=== PATIENT | male | born 1965 | race Caucasian/White ===

== ENCOUNTER 2018-05-03 12:21 | Inpatient (IN) | payer BC ==
[~2018-05-03] VITALS: Ht 177.8 cm; Wt 101.5 kg
[2018-05-03 14:08] VITALS: BP 119/76
[2018-05-03] MEDS ORDERED: FURO20TA3 PO (14:43)
[2018-05-03] MEDS ORDERED: LACT10SO28 PO (14:43)
[2018-05-03] MEDS ORDERED: POTA10TA6 PO (14:43)
[2018-05-03] MEDS ORDERED: SPIR25TA5 PO (14:43)
[2018-05-03 14:46] VITALS: BP 119/76
[2018-05-03] MEDS ORDERED: ONDANSETRON 2MG/ML, 2ML IVPush PRN (15:30)
[2018-05-03 16:04] LABS: ALANINE AMINOTRANSFERASE 91 U/L (12-78); ALBUMIN 2.5 g/dL (3.4-5.0); ANION GAP 12 mmol/L (5-15); CALCIUM 7.8 mg/dL (8.5-10.1); CHLORIDE 98 mmol/L (98-107)
[2018-05-03 16:07] LABS: POTASSIUM,URINE RANDOM 46 mmol/L; SODIUM,URINE RANDOM 8 mmol/L
[2018-05-03 16:08] LABS: CHLORIDE,URINE RANDOM < 10 mmol/L
[2018-05-03 16:15] LABS: ALKALINE PHOSPHATASE 150 U/L (45-117)
[2018-05-03 16:39] LABS: CREATININE 4.66 mg/dL (0.7-1.3)
[2018-05-03 16:40] LABS: TOTAL PROTEIN 6.9 g/dL (6.4-8.2)
[2018-05-03 16:42] LABS: BILIRUBIN,TOTAL 28.8 mg/dL (0.2-1.0)
[2018-05-03] MEDS: SODIUM CHLORIDE 0.9% 1,000 ML IV SCH (18:43)
[2018-05-03] MEDS: OXYcodone IR 5MG TABLET PO PRN ×2 (18:47→22:50)
[2018-05-03 20:08] VITALS: BP 122/73
[2018-05-03] MEDS ORDERED: LACTULOSE 10 GM/15 ML UDC PO SCH (21:00)
[2018-05-04 01:50] VITALS: BP 120/74
[2018-05-04] MEDS: SODIUM CHLORIDE 0.9% 1,000 ML IV SCH ×2 (04:42→17:34)
[2018-05-04 05:47] LABS: ALANINE AMINOTRANSFERASE 92 U/L (12-78); ALBUMIN 2.3 g/dL (3.4-5.0); ANION GAP 14 mmol/L (5-15); CALCIUM 7.9 mg/dL (8.5-10.1); CHLORIDE 98 mmol/L (98-107); MEAN CORPUSCULAR HEMOGLOBIN 36.4 pg (27.5-34.5); MEAN CORPUSCULAR HGB CONC 34.4 g/dL (33.2-36.2); MEAN CORPUSCULAR VOLUME 105.8 fL (81-97); MEAN PLATELET VOLUME 9.4 fL (7.4-10.4); PLATELET COUNT 268 x10^3/uL (130-400); RED CELL DISTRIBUTION WIDTH 14.4 % (9.4-14.8)
[2018-05-04 05:58] LABS: ALKALINE PHOSPHATASE 152 U/L (45-117)
[2018-05-04 06:05] LABS: INTERNATIONAL NORMALIZED RATIO 2.06 (0.93-1.1); PROTHROMBIN TIME 20.9 Seconds (9.6-11.5)
[2018-05-04 06:06] LABS: CREATININE 4.34 mg/dL (0.7-1.3)
[2018-05-04 06:21] LABS: BASOPHILS # (AUTO) 0.01 x10^3/uL (0-0.1); BASOPHILS % (AUTO) 0 % (0-1); EOSINOPHILS % (AUTO) 0 % (1-7); LYMPHOCYTES # (AUTO) 1.08 x10^3/uL (1-3.4); LYMPHOCYTES % (AUTO) 6 % (22-44); MD SCAN; MONOCYTES % (AUTO) 6 % (2-9); NEUTROPHILS # (AUTO) 16.73 x10^3/uL (1.8-6.8); NEUTROPHILS % (AUTO) 88 % (42-75)
[2018-05-04 07:46] VITALS: BP 137/83
[2018-05-04] MEDS ORDERED: FUROSEMIDE 20 MG TABLET PO SCH (09:00)
[2018-05-04] MEDS: ALBUMIN HUMAN 25% 100 ML IV SCH ×2 (09:05→17:33)
[2018-05-04] MEDS: PANTOPROZOLE 40MG TABLET PO SCH (09:05)
[2018-05-04 12:45] VITALS: BP 125/78
[2018-05-04] MEDS: OXYcodone IR 5MG TABLET PO PRN ×2 (18:36→22:56)
[2018-05-04 20:09] VITALS: BP 127/75
[2018-05-05 00:17] VITALS: BP 106/78
[2018-05-05] MEDS: ALBUMIN HUMAN 25% 100 ML IV SCH ×3 (01:49→18:27)
[2018-05-05] MEDS: SODIUM CHLORIDE 0.9% 1,000 ML IV SCH ×2 (04:39→18:27)
[2018-05-05 05:13] LABS: CHLORIDE,URINE RANDOM 11 mmol/L; POTASSIUM,URINE RANDOM 27 mmol/L; SODIUM,URINE RANDOM 16 mmol/L
[2018-05-05 05:17] LABS: MICROSCOPIC INDICATED
[2018-05-05 05:59] LABS: ALBUMIN 2.8 g/dL (3.4-5.0); ANION GAP 14 mmol/L (5-15); CALCIUM 7.3 mg/dL (8.5-10.1); CHLORIDE 103 mmol/L (98-107)
[2018-05-05 06:03] LABS: ALANINE AMINOTRANSFERASE 70 U/L (12-78); ALKALINE PHOSPHATASE 104 U/L (45-117); MEAN CORPUSCULAR HGB CONC 34.8 g/dL (33.2-36.2); MEAN CORPUSCULAR VOLUME 106.4 fL (81-97); MEAN PLATELET VOLUME 9.2 fL (7.4-10.4); PLATELET COUNT 213 x10^3/uL (130-400); RED BLOOD COUNT 3.26 x10^6/uL (4.38-5.82); RED CELL DISTRIBUTION WIDTH 14.5 % (9.4-14.8)
[2018-05-05 06:05] LABS: CREATININE 3.98 mg/dL (0.7-1.3); TOTAL PROTEIN 5.7 g/dL (6.4-8.2)
[2018-05-05 06:06] LABS: BILIRUBIN,TOTAL 21.8 mg/dL (0.2-1.0)
[2018-05-05 06:33] LABS: BASOPHILS # (AUTO) 0.03 x10^3/uL (0-0.1); BASOPHILS % (AUTO) 0 % (0-1); EOSINOPHILS # (AUTO) 0.01 x10^3/uL (0-0.4); EOSINOPHILS % (AUTO) 0 % (1-7); LYMPHOCYTES % (AUTO) 10 % (22-44); MD SCAN; MONOCYTES # (AUTO) 1.63 x10^3/uL (0.2-0.8); MONOCYTES % (AUTO) 11 % (2-9); NEUTROPHILS # (AUTO) 11.24 x10^3/uL (1.8-6.8); NEUTROPHILS % (AUTO) 79 % (42-75)
[2018-05-05 07:08] VITALS: BP 131/74
[2018-05-05] MEDS: PANTOPROZOLE 40MG TABLET PO SCH (08:06)
[2018-05-05] MEDS ORDERED: LIDOCAINE 1%, 10ML ONE (09:40)
[2018-05-05 12:32] VITALS: BP 118/70
[2018-05-05 19:47] VITALS: BP 117/63
[2018-05-05] MEDS: OXYcodone IR 5MG TABLET PO PRN ×2 (19:47→23:50)
[2018-05-06] MEDS: ALBUMIN HUMAN 25% 100 ML IV SCH ×2 (00:59→10:07)
[2018-05-06 01:26] VITALS: BP 113/67
[2018-05-06 05:44] LABS: CALCIUM 7.8 mg/dL (8.5-10.1); CHLORIDE 109 mmol/L (98-107)
[2018-05-06 05:49] LABS: ALANINE AMINOTRANSFERASE 72 U/L (12-78); ALBUMIN 3.1 g/dL (3.4-5.0); ALKALINE PHOSPHATASE 100 U/L (45-117); ANION GAP 10 mmol/L (5-15)
[2018-05-06 05:52] LABS: CREATININE 3.71 mg/dL (0.7-1.3)
[2018-05-06 05:54] LABS: BILIRUBIN,TOTAL 21.4 mg/dL (0.2-1.0); TOTAL PROTEIN 5.6 g/dL (6.4-8.2)
[2018-05-06] MEDS: SODIUM CHLORIDE 0.9% 1,000 ML IV SCH (05:58)
[2018-05-06 06:55] VITALS: BP 125/73
[2018-05-06] MEDS: PANTOPROZOLE 40MG TABLET PO SCH (08:54)
[2018-05-06 12:18] VITALS: BP 128/70
== END 2018-05-06 14:12 | disposition home or self-care (01) | DRG 441 ==
LOC: EDBD → 4EST 13:48
PROVIDERS: ADMIT Hospitalist; ATTEND Internal Medicine
PROC: 0W9G3ZZ Drainage of Peritoneal Cavity, Percutaneous Approach (ICD-10-PCS; principal; 2018-05-05)
DX: K76.7 Hepatorenal syndrome (principal); E43 Unspecified severe protein-calorie malnutrition; N17.0 Acute kidney failure with tubular necrosis; D68.9 Coagulation defect, unspecified; E87.1 Hypo-osmolality and hyponatremia; E66.9 Obesity, unspecified; F10.10 Alcohol abuse, uncomplicated; Y90.1 Blood alcohol level of 20-39 mg/100 ml; K70.11 Alcoholic hepatitis with ascites; K70.31 Alcoholic cirrhosis of liver with ascites; K72.90 Hepatic failure, unspecified without coma; Z82.49 Family history of ischemic heart disease and other diseases of the circulatory system; Z68.32 Body mass index [BMI] 32.0-32.9, adult; Z91.030 Bee allergy status; Z91.09 Other allergy status, other than to drugs and biological substances
CPT/HCPCS: 36415; 49083; 80053; 81001; 82436; 83735; 84100; 84133; 84300; 85025; 85610; 88112; 88305; J3490; P9047; J7030